=== PATIENT | male | born 1975 | race Caucasian/White ===

== ENCOUNTER 2020-01-06 18:33 | Emergency (ER) | payer OTHER ==
[2020-01-06 18:38] VITALS: BMI 28.8
--- NOTE | 2020-01-06 18:40 | PDOC ---
Rapid Medical Evaluation Time Seen by Provider: 01/06/20 18:37 Medical Evaluation: 01/06/20 18:37 Pt presents for fatigue, L arm tingling starting yesterday. Also reports L sided chest discomfort Exam: RRR, S1 S2 present. Lungs CTAB Orders: Cardiac work up Pt to proceed to the ER for further evaluation Discharge Disposition - Diagnosis Left arm numbness - Referrals - Patient Instructions - Post Discharge Activity
[2020-01-06 19:40] LABS: BASO % 0.8 % (0-2.0); EOS % 1.7 % (0-4.5); HEMATOCRIT 43.2 % (35.4-49); LYMPH % 36.6 % (8-40); MCH 31.2 pg (25.7-33.7); MCHC 34.7 g/dl (32.0-35.9); MEAN CELL VOLUME 89.9 fl (80-96); MEAN PLT VOLUME 6.9 fl (7.5-11.1); MONO % 7.1 % (3.8-10.2); NEUT % 53.8 % (42.8-82.8); PLATELET COUNT 320 K/MM3 (134-434); RBC 4.81 M/mm3 (4.00-5.60); RDW 13.2 % (11.9-15.9); WHITE BLOOD COUNT 6.9 K/mm3 (4.0-10.0)
--- NOTE | 2020-01-06 19:52 | PDOC ---
History of Present Illness - General Chief Complaint: Chest Pain Stated Complaint: L ARM NUMBNESS Time Seen by Provider: 01/06/20 18:37 - History of Present Illness Initial Comments: 01/06/20 19:49 HPI: 44 y/o M with hx of nephrolithiasis presenting with left arm tingling since yesterday. He was running for about 45min during the heat yesterday when he started feeling left arm tingling that persisted intermittently until today. He also reported being more tired than he normally is during his workouts. His symptoms improved today, however, he was concerned and wanted evaluation. He also reports left shoulder, trapezius, and lateral left chest discomfort with radiation to the back. He also noted a brief episode of muscle fasiculations this morning. He denies SOB, RICARDO, dz, LH, change in vision, diaphoresis, dysuria, abd pain, exertional symptoms. PMHx: as noted above ROS: as noted SHx: Denies tobacco use; occ alcohol use; no rec drugs Allergies: NKDA FH: father with [place] in his 50s and Gpa with [place] in 60s. ROS: GENERAL/CONSTITUTIONAL: No fever or chills. No weakness. HEAD, EYES, EARS, NOSE AND THROAT: No change in vision. No ear pain or discharge. No sore throat. CARDIOVASCULAR: +chest pain; no shortness of breath RESPIRATORY: No cough, wheezing, or hemoptysis. GASTROINTESTINAL: No nausea, vomiting, diarrhea or constipation. GENITOURINARY: No dysuria, frequency, or change in urination. MUSCULOSKELETAL: +mucle and back pain. SKIN: No rash NEUROLOGIC: No headache, vertigo, loss of consciousness, or change in strength/sensation. ENDOCRINE: No increased thirst. No abnormal weight change HEMATOLOGIC/LYMPHATIC: No anemia, easy bleeding, or history of blood clots. ALLERGIC/IMMUNOLOGIC: No hives or skin allergy. PE: GENERAL: Awake, alert, and fully oriented, no acute distress HEAD: No signs of trauma, normocephalic, atraumatic EYES: EOMI, sclera anicteric, conjunctiva clear ENT: Auricles normal inspection, hearing grossly normal, nares patent, oropharynx clear without exudates. Moist mucosa NECK: Normal ROM, no lymphadenopathy LUNGS: No increased work of breathing, symmetrical chest rise, clear to a uscultation bilaterally, no wheezes, crackles or rhonchi HEART: Regular rate, regular rhythm, normal S1 and S2, no murmur, peripheral pulses 2+ and equal bilaterally. ABDOMEN: Soft, nondistended, nontender. No guarding, no rebound. No masses. No CVAT MUSCULOSKELETAL: FROM, ttp left trapezius with reproduction of tingling sensation in arm NEUROLOGICAL: Cranial nerves II through XII grossly intact. Normal speech, stable gait, no focal sensorimotor deficits SKIN: Warm, Dry, normal turgor, no rashes or lesions noted Past History - Medical History Allergies/Adverse Reactions: Allergies Allergy/AdvReac Type Severity Reaction Status Date / Time No Known Allergies Allergy Verified 01/06/20 21:17 COPD: No Other medical history: DENIES - Immunization History Immunization Up to Date: Yes - Psycho-Social/Smoking History Smoking History: Never smoked - Substance Abuse Hx (Audit-C & DAST Scrn) How often the patient has a drink containing alcohol: Never Score: In Men: 4 or > Positive; In Women: 3 or > Positive: 0 Screen Result (Pos requires Nsg. Audit-10AR): Negative In the last yr the pt used illegal drug/Rx for NonMed reason: No Score: Yes response is considered Positive: 0 Screen Result (Positive result requires Nsg. DAST-10): Negative *Physical Exam - Vital Signs Last Vital Signs Temp Pulse Resp BP Pulse Ox 98.3 F 57 L 20 148/81 100 01/06/20 18:36 01/06/20 18:36 01/06/20 18:36 01/06/20 18:36 01/06/20 18:36 ED Treatment Course - LABORATORY CBC & Chemistry Diagram: 01/06/20 18:45 01/06/20 18:45 - ADDITIONAL ORDERS Additional order review: 01/06/20 18:45 RBC 4.81 MCV 89.9 MCHC 34.7 RDW 13.2 MPV 6.9 L Neutrophils % 53.8 Lymphocytes % 36.6 Monocytes % 7.1 Eosinophils % 1.7 Basophils % 0.8 Medical Decision Making - Medical Decision Making 01/06/20 22:56 44 y/o M with hx of nephrolithiasis presenting with left arm tingling since yesterday associated with left shoulder/trap/lateral left chest pain. VSS, AF. PE with left trap ttp and reproduction of paresthesias. DDx includes dehydration, radiculopathy, msk strain; will r/o cardiac etiology. -cbc, cmp, card prof, mg, coags, ekg, cxr -toradol 01/06/20 23:02 cxr: no acute pathology ekg: sinus winifred, no dannielle/d improved with toradol discussed with patient results; labs wnl; liekly dehydration vs msk strain will dc with pcp and cards followup for stress test understands and agreeable no qs at this time Discharge - Discharge Information Problems reviewed: Yes Clinical Impression/Diagnosis: Left arm numbness, Radiculopathy, Musculoskeletal chest pain Condition: Stable Disposition: HOME - Follow up/Referral - Patient Discharge Instructions Patient Printed Discharge Instructions: DI for Musculoskeletal Pain Additional Instructions: Additional Instructions: Please return to the emergency department with any new or worsening symptoms or concerns including worsening pain, shortness of breath, fainting. Please follow up with your primary care physician within 72 hours. Please followup with a laborer rags within 1 week for further evaluation and possible stress test. Information for Dr Anders has been included Please take tylenol 650mg-1000mg every 6-8 hours as needed for pain control and muscular soreness. You may also take 600mg ibuprofen every 6-8 hours as needed. You may ice your shoulder for muscular inflammation - Post Discharge Activity
[2020-01-06 20:14] LABS: ALBUMIN 4.2 g/dl (3.4-5.0); ALK PHOS 93 U/L (45-117); ANION GAP 10 MMOL/L (8-16); BILIRUBIN,TOTAL 0.6 mg/dL (0.2-1); BLOOD UREA NITROGEN 14.8 mg/dL (7-18); CALCIUM 9.2 mg/dL (8.5-10.1); CHLORIDE 104 mmol/L (98-107); CO2 26 mmol/L (21-32); GLUCOSE,RANDOM 81 mg/dL (74-106); MAGNESIUM 2.3 mg/dL (1.8-2.4); POTASSIUM 3.9 mmol/L (3.5-5.1); SGOT/AST 24 U/L (15-37); SGPT/ALT 37 U/L (13-61); SODIUM 139 mmol/L (136-145); TOT PROT 7.4 g/dl (6.4-8.2)
[2020-01-06 20:46] LABS: INR 0.98 (0.83-1.09); PROTHROMBIN TIME (PATIENT) 11.6 SEC (9.7-13.0)
[2020-01-06 20:49] LABS: ACTIVATED PTT 31.1 SECONDS (25.2-36.5)
[2020-01-06] MEDS ORDERED: KETOROLAC TROMETHAMINE 30 MG/1 ML VIAL IVPUSH ONE (21:09)
[2020-01-06] MEDS ORDERED: KETOROLAC TROMETHAMINE 15 MG/ML VIAL ONE (21:23)
--- NOTE | 2020-01-06 21:43 | PDOC ---
Attending Attestation - Resident Resident Name: Miladys Gallegos - ED Attending Attestation I have performed the following: I have examined & evaluated the patient, The case was reviewed & discussed with the resident, I agree w/resident's findings & plan - HPI HPI: 01/06/20 21:39 44 yo male w/ chest tightness sob and arm tingeling after running intensely during normal workout. States that it began yesterday and has since subsided. No pmhx. Fam hx of mi in father at 50. - Physicial Exam PE: 01/06/20 21:40 EXam CTA bilat RRR Soft ntnd +BS Reproducible chest wall pain improved after toradol 01/06/20 21:42 - Medical Decision Making 01/06/20 21:41 44 yo male w/ sob and chest tightness after intense work out states he felt like he was out of breath and over did it EKG NSR 50 normal axi and intervals no acute ischemie time 2135 Plan CE x 1 EKG CXR Toradol Cards follow up Discharge - Discharge Information Problems reviewed: Yes Clinical Impression/Diagnosis: Left arm numbness, Radiculopathy, Musculoskeletal chest pain Condition: Stable Disposition: HOME - Follow up/Referral - Patient Discharge Instructions Patient Printed Discharge Instructions: DI for Musculoskeletal Pain Additional Instructions: Additional Instructions: Please return to the emergency department with any new or worsening symptoms or concerns including worsening pain, shortness of breath, fainting. Please follow up with your primary care physician within 72 hours. Please followup with a food demonstrator within 1 week for further evaluation and possible stress test. Information for Dr Anders has been included Please take tylenol 650mg-1000mg every 6-8 hours as needed for pain control and muscular soreness. You may also take 600mg ibuprofen every 6-8 hours as needed. You may ice your shoulder for muscular inflammation - Post Discharge Activity
[2020-01-06 22:56] VITALS: BP 139/77; PULSE 59; TEMP 98.1
--- NOTE | 2020-01-07 10:17 | EKG ---
Test Reason : Blood Pressure : / mmHG Vent. Rate : 050 BPM Atrial Rate : 050 BPM P-R Int : 164 ms QRS Dur : 092 ms QT Int : 462 ms P-R-T Axes : 060 -01 009 degrees QTc Int : 421 ms SINUS BRADYCARDIA MODERATE VOLTAGE CRITERIA FOR LVH, MAY BE NORMAL VARIANT BORDERLINE ECG WHEN COMPARED WITH ECG OF 06-JAN-2020 18:47, SINUS RHYTHM HAS REPLACED ECTOPIC ATRIAL RHYTHM Confirmed by MD Omid, Stan ([id number]) on 01/07/2020 10:16:52 AM Referred By: Confirmed By:Stan Anne MD
--- NOTE | 2020-01-07 10:17 | EKG ---
Test Reason : Blood Pressure : / mmHG Vent. Rate : 050 BPM Atrial Rate : 050 BPM P-R Int : 158 ms QRS Dur : 092 ms QT Int : 454 ms P-R-T Axes : 143 -01 -03 degrees QTc Int : 413 ms UNUSUAL P AXIS, POSSIBLE ECTOPIC ATRIAL BRADYCARDIA ABNORMAL ECG NO PREVIOUS ECGS AVAILABLE Confirmed by MD Omid, Stan ([id number]) on 01/07/2020 10:17:06 AM Referred By: Confirmed By:Stan Anne MD
== END 2020-01-06 22:05 | disposition home or self-care (01) ==
LOC: JER 18:33
PROC: 3E0333Z Introduction of Anti-inflammatory into Peripheral Vein, Percutaneous Approach (ICD-10-PCS; principal; 2020-01-06)
DX: R20.2 Paresthesia of skin (principal)
CPT/HCPCS: 36415; 71046-TC-FY; 80053; 82550; 83735; 84484; 85025; 85610; 85730; 93005; 93010; 99285-25

== ENCOUNTER 2020-06-06 11:52 | Emergency (ER) | payer OTHER ==
[2020-06-06 12:19] VITALS: TEMP 98.2; BMI 30.2
[2020-06-06 14:35] LABS: BASO % 0.5 % (0-2.0); EOS % 0.9 % (0-4.5); HEMATOCRIT 42.9 % (35.4-49); HEMOGLOBIN 15.1 GM/dL (11.7-16.9); LYMPH % 28.3 % (8-40); MCHC 35.2 g/dl (32.0-35.9); MEAN CELL VOLUME 87.9 fl (80-96); MEAN PLT VOLUME 6.4 fl (7.5-11.1); MONO % 6.3 % (3.8-10.2); PLATELET COUNT 408 K/MM3 (134-434); RBC 4.88 M/mm3 (4.00-5.60); RDW 12.4 % (11.9-15.9); WHITE BLOOD COUNT 7.3 K/mm3 (4.0-10.0)
[2020-06-06 14:54] LABS: POTASSIUM 4.7 mmol/L (3.5-5.1)
[2020-06-06 14:55] LABS: CALCIUM 9.4 mg/dL (8.5-10.1)
[2020-06-06 15:00] LABS: CREATININE 1.1 mg/dL (0.55-1.3)
[2020-06-06 15:02] LABS: BILIRUBIN,TOTAL 0.8 mg/dL (0.2-1)
[2020-06-06 16:21] VITALS: BP 116/74; PULSE 63
== END 2020-06-06 16:10 | disposition home or self-care (01) ==
LOC: JER 11:52
DX: R53.1 Weakness (principal); R41.82 Altered mental status, unspecified
CPT/HCPCS: 36415; 80053; 85025; 93005; 93010; 99284-25

== ENCOUNTER 2020-07-24 15:30 | Emergency (ER) | payer OTHER ==
[2020-07-24 15:50] VITALS: BP 146/107; PULSE 92; TEMP 98.1; BMI 30.7
[2020-07-24 16:13] LABS: BASO % 0.9 % (0-2.0); EOS % 1.2 % (0-4.5); HEMATOCRIT 43.8 % (35.4-49); HEMOGLOBIN 14.8 GM/dL (11.7-16.9); LYMPH % 29.5 % (8-40); MCH 30.8 pg (25.7-33.7); MCHC 33.9 g/dl (32.0-35.9); MEAN PLT VOLUME 6.5 fl (7.5-11.1); MONO % 7.8 % (3.8-10.2); NEUT % 60.6 % (42.8-82.8); PLATELET COUNT 325 K/MM3 (134-434); RBC 4.81 M/mm3 (4.00-5.60); WHITE BLOOD COUNT 5.8 K/mm3 (4.0-10.0)
[2020-07-24 16:35] LABS: CALCIUM 9.7 mg/dL (8.5-10.1)
[2020-07-24 16:36] LABS: ALBUMIN 3.9 g/dl (3.4-5.0); BLOOD UREA NITROGEN 15.3 mg/dL (7-18); CO2 30 mmol/L (21-32); GLUCOSE,RANDOM 79 mg/dL (74-106)
[2020-07-24 16:39] LABS: CREATININE 1.1 mg/dL (0.55-1.3); SGOT/AST 16 U/L (15-37); SGPT/ALT 38 U/L (13-61)
[2020-07-24 16:41] LABS: BILIRUBIN,TOTAL 0.6 mg/dL (0.2-1); TOT PROT 7.4 g/dl (6.4-8.2)
[2020-07-24 16:42] LABS: ALK PHOS 90 U/L (45-117)
[2020-07-24 17:19] LABS: ANION GAP 4 MMOL/L (8-16); CHLORIDE 108 mmol/L (98-107); POTASSIUM 5.2 mmol/L (3.5-5.1); SODIUM 142 mmol/L (136-145)
== END 2020-07-24 18:10 | disposition home or self-care (01) ==
LOC: JER 15:30
DX: U07.1 COVID-19 (principal)
CPT/HCPCS: 36415; 71046-TC-FY; 80053; 82550; 84484; 85025; 85379; 93005; 93010; 99284-25